=== PATIENT | male | born 1965 | race Caucasian/White ===

== ENCOUNTER 2016-04-16 11:22 | Emergency (ER) | payer OTHER ==
[~2016-04-16] VITALS: Ht 170.2 cm; Wt 78.9 kg
[~2016-04-16 11:22] MED LIST: ALDACTONE100 M1 PO; K-DUR10 MEQ PO; LASIX20 M1 PO; LEVAQUIN750 MG PO; NATURE'S BLEND F1 M1 PO; NATURE'S BLEND100 M2 PO; PENTOXIFYL XR400 MG PO; VITAMIN B1100 MG/ML PO
[2016-04-16 12:00] VITALS: BP 109/74
--- NOTE | 2016-04-16 13:30 | NUR ---
50/M BIB SELF C/O PAIN TO L EAR & WEAKNESS X3 WEEKS. PT STATES "I WENT TO FOLLOW [facility] MY PCP; [place] WBC HIGH & PCP TOLD ME TO COME HERE.".PT DENIES N/V/D; SKIN IS PINK/WARM/DRY; AAOX4 WITH EVEN AND STEADY GAIT; LUNGS CLEAR BL; HR EVEN AND REGULAR; PT DENIES ANY FEVER, CP, SOB, OR COUGH AT THIS TIME; PATIENT STATES PAIN OF 0/10 AT THIS TIME; VSS; PATIENT POSITIONED FOR COMFORT; HOB ELEVATED; BEDRAILS UP X2; BED DOWN. ER MD MADE AWARE OF PT STATUS.
--- NOTE | 2016-04-16 13:32 | NUR ---
DR LÓPEZ EVALUATING PT AT BEDSIDE
--- NOTE | 2016-04-16 14:09 | NUR ---
X RAY AT BEDSIDE
[2016-04-16] MEDS ORDERED: NACL 0.9% 1,000 ML IV ONE (14:55)
[2016-04-16] MEDS ORDERED: cefTRIAXone 1,000 MG VIAL ONE (15:05)
--- NOTE | 2016-04-16 16:26 | NUR ---
Patient appears to be resting comfortably in bed. Vital Signs within normal limits. Respirations even and unlabored.
[2016-04-16 17:13] VITALS: BP 122/89
--- NOTE | 2016-04-16 17:13 | NUR ---
Patient discharged with v/s stable. Written and verbal after care instructions given and explained. Patient alert, oriented and verbalized understanding of instructions. Wheel Chair Assisted with to car. All questions addressed prior to discharge. ID band removed. Patient advised to follow up with PMD. Rx of LEVAQUIN given. Patient educated on indication of medication including possible reaction and side effects. Opportunity to ask questions provided and answered.
== END 2016-04-16 17:13 | disposition home or self-care (01) ==
LOC: MED 11:22
DX: D72.829 Elevated white blood cell count, unspecified (principal); K70.9 Alcoholic liver disease, unspecified
CPT/HCPCS: 36415; 71010; 80053; 83605; 83880; 84484; 85025; 85610; 85730; 87040; 93005; 96365; 99285; J0696; Q0092

== ENCOUNTER 2016-04-17 11:25 | Emergency (ER) | payer OTHER ==
[~2016-04-17] VITALS: Ht 170.2 cm; Wt 78.9 kg
[2016-04-17 11:50] VITALS: BP 122/86
--- NOTE | 2016-04-17 11:50 | NUR ---
PATIENT PRESENTS TO ED TO HAVE A RECHECK OF HIS ABDOMINAL STATION . PT STATES HE WAS INSTRUCTED TO COME BACK TODAY . DENIES N/V/D; SKIN IS PINK/WARM/DRY; AAOX4 WITH EVEN AND STEADY GAIT; LUNGS CLEAR BL; HR EVEN AND REGULAR; PT DENIES ANY FEVER, CP, SOB, OR COUGH AT THIS TIME; PATIENT STATES PAIN OF 0/10 AT THIS TIME; VSS; PATIENT POSITIONED FOR COMFORT; HOB ELEVATED; BEDRAILS UP X2; BED DOWN. ER MD MADE AWARE OF PT STATUS.
--- NOTE | 2016-04-17 12:13 | NUR ---
PT TO BED 4 AT THIS TIME
--- NOTE | 2016-04-17 12:50 | NUR ---
Patient being evaluated by physician at bedside.
[2016-04-17 13:01] VITALS: BP 111/76
--- NOTE | 2016-04-17 13:03 | NUR ---
Patient discharged with v/s stable. Written and verbal after care instructions given and explained. Patient alert, oriented and verbalized understanding of instructions. Ambulatory with steady gait. All questions addressed prior to discharge. ID band removed. Patient advised to follow up with PMD. Rx of THIAMINE, LACTULOSE, VIT B12 given. Patient educated on indication of medication including possible reaction and side effects. Opportunity to ask questions provided and answered.
== END 2016-04-17 13:03 | disposition home or self-care (01) ==
LOC: MED 11:25
DX: K59.00 Constipation, unspecified (principal); F10.239 Alcohol dependence with withdrawal, unspecified

== ENCOUNTER 2017-06-11 13:04 | Inpatient (IN) | payer OTHER ==
[~2017-06-11] VITALS: Ht 170.2 cm; Wt 82.6 kg
[~2017-06-11 13:04] MED LIST changes: -ALDACTONE100 M1 PO; +FOLI1TAB90 PO; +FURO-572 PO; -K-DUR10 MEQ PO; -LASIX20 M1 PO; -LEVAQUIN750 MG PO; +LEVO750T2 PO; -NATURE'S BLEND F1 M1 PO; -NATURE'S BLEND100 M2 PO; -PENTOXIFYL XR400 MG PO; +POTA10TE30 PO; +SPIR100T PO; +THIA100T31 PO; -VITAMIN B1100 MG/ML PO; +[UNRECOGNIZED DRUG - CODE] PO
--- NOTE | 2017-06-11 13:23 | NUR ---
Pt ambulated to bed 2.
[2017-06-11 13:28] VITALS: BP 88/60
[2017-06-11] MEDS ORDERED: ONDANSETRON 4 MG/2 ML VIAL IVP ONE (13:35)
[2017-06-11] MEDS ORDERED: NACL 0.9% 1,000 ML IV ONE (13:35)
[2017-06-11] MEDS ORDERED: PANTOPRAZOLE 40 MG INJ VIAL IVP ONE (13:35)
--- NOTE | 2017-06-11 13:49 | NUR ---
PT COMES TO ED C/O N/V BLOODY EMESIS SINCE 1 HR AGO. PT BROUGHT GROCERY BAG WITH APPROXIMATLEY 100ML OF BRIGHT RED BLODDY EMESIS. PT IS DIAPHORETIC, TALKATIVE, AXOX4. PLACED ON ALL MONITORS, HYPOTENTION OBSERVED, WNL OTHERWISE. 20G IV STARTED TO LFA, IVF NS BOLUS STAERTED PER MD ORDER. LABS DRAWN BY CRUZ SPENCE. EKG IN PROGERESS. WILL CONTINUE TO MONITOR
[2017-06-11 14:07] LABS: BASOPHILS # (AUTO) 0.1 K/uL (0.00-0.22); BASOPHILS % (AUTO) 0.7 % (0.0-2.0); EOSINOPHILS # (AUTO) 0.2 K/uL (0-0.4); EOSINOPHILS % (AUTO) 1.9 % (0.0-4.0); HEMATOCRIT 32.5 % (36-52); HEMOGLOBIN 11.1 g/dL (12.0-18.0); LYMPHOCYTES # (AUTO) 2.5 K/uL (2.0-11.5); LYMPHOCYTES % (AUTO) 26.1 % (20.5-51.1); MEAN CORPUSCULAR HEMOGLOBIN 32 pg (27-31); MEAN CORPUSCULAR HGB CONC 34 g/dL (33-37); MEAN CORPUSCULAR VOLUME 93.9 fL (80-94); MONOCYTES # (AUTO) 0.6 K/uL (0.8-1.0); MONOCYTES % (AUTO) 6.1 % (1.7-9.3); NEUTROPHILS # (AUTO) 6.2 K/uL (1.8-7.7); NEUTROPHILS % (AUTO) 65.2 % (42.2-75.2); PLATELET COUNT (AUTO) 145 K/uL (140-450); RED BLOOD CELL COUNT(AUTO) 3.47 MIL/uL (4.20-6.10); RED CELL DISTRIBUTION WIDTH 14.4 % (11.6-13.7); WHITE BLOOD COUNT (AUTO) 9.5 K/uL (4.8-10.8)
[2017-06-11 14:16] LABS: CREATININE 1.2 mg/dL (0.7-1.3)
[2017-06-11 14:22] LABS: ALBUMIN 2.2 g/dL (3.4-5.0); TOTAL BILIRUBIN 0.7 mg/dL (0.0-1.0)
[2017-06-11 14:38] LABS: PROTHROMBIN TIME 12.8 secs (10.8-13.4)
[2017-06-11 14:53] LABS: APPEARANCE,URINE CLEAR (CLEAR); BILIRUBIN,URINE NEGATIVE (NEGATIVE); BLOOD, URINE NEGATIVE (NEGATIVE); COLOR,URINE YELLOW (YELLOW); LEUKOCYTE ESTERASE ,URINE NEGATIVE (NEGATIVE); NITRITE, URINE NEGATIVE (NEGATIVE); UGLUCOSE 3+ (NEGATIVE)
--- NOTE | 2017-06-11 15:00 | NUR ---
Patient appears to be resting comfortably in bed. Vital Signs within normal limits. Respirations even and unlabored.
--- NOTE | 2017-06-11 15:21 | NUR ---
Pt returned from CT and placed in bed 2.
[2017-06-11] MEDS ORDERED: NACL 0.9% 1,000 ML IV SCH (15:23)
[2017-06-11] MEDS ORDERED: HYDROcodone/APAP 5/325 MG 1 TAB TAB PO PRN (15:25)
[2017-06-11] MEDS ORDERED: ACETAMINOPHEN 325 MG TAB PO PRN (15:25)
[2017-06-11] MEDS ORDERED: ONDANSETRON 4 MG/2 ML VIAL IVP PRN ×2 (15:25→18:40)
[2017-06-11] MEDS: DEXT 5% / NACL 0.9% 1,000 ML IV SCH (15:45)
--- NOTE | 2017-06-11 15:45 | NUR ---
PATIENT ARRIVED TO UNIT VIA GURNEY BEING ACCOMPANIED BY ER NURSE AND TECH. PATIENT AMBULATED FROM GURNEY TO BED. PATIENT ALERT AND ABLE TO MAKE NEEDS KNOWN. A/0X4. RESP EVEN AND UNLABORED. NO ACUTE DISTRESS NOTED. DENIES PAIN. LUNG SOUNDS CLEAR. BOWEL SOUNDS ACTIVE. ABD ROUND AND FIRM. PATIENT WITH HISTORY OF LIVER CIRRHOSIS. IV SITES TO LFA AND RFA BOTH 20G. BOTH PATENT AND INTACT. LAST BLOOD SUGAR 296 . LBM 06/11/17. PATIENT TO BE NPO. SKIN INTACT. PLAN OF CARE DISCUSSED WITH PATIENT. ORIENTED TO ROOM. ADMISSIONS ASSESSMENT INITIATED.CALL LIGHT WITHIN REACH. WILL CONT TO MONITOR.
--- NOTE | 2017-06-11 15:50 | NUR ---
Patient will be admitted to care of DR MARIANO. Admited to TELE . Will go to room 120B. Belongings list completed. Report to CRUZ CURTIS.
[2017-06-11 15:57] VITALS: BP 84/53
[2017-06-11] MEDS: ALBUMIN HUMAN 25% 100 ML IV SCH (16:00)
[2017-06-11] MEDS: BLOOD GLUCOSE MONITORING 1 DEV DEV FS SCH ×2 (16:30→21:23)
--- NOTE | 2017-06-11 16:30 | NUR ---
SPOKE WITH DR MARIANO REGARDING PATIENT BP DROPPING TO 73/47 EVEN AFTER POSITIONED IN [place] WITH NEW ORDER FOR ALBUMIN TO BE ADMINISTERED 3 HRS. AFTER FIRST DOSE COMPLETE..
[2017-06-11] MEDS: INSULIN LISPRO SLIDING SCALE 100 UNITS/ML VIAL SUBQ PRN ×2 (18:07→21:25)
[2017-06-11] MEDS ORDERED: OCTREOTIDE ACETATE 1.25 MG in NACL 0.9% 250 ML IV SCH ×3 (18:40→23:25)
--- NOTE | 2017-06-11 19:00 | NUR ---
DR STORY CALLED IN ORDERS FOR PATIENT . ALL ORDERS NOTED AND CARRIED OUT. PATIENT STABLE IN BED. NO ACUTE DISTRESS. LAST BP 129/86 HR 105.WILL ENDORSE MEDICATION ORDERS TO ONCOMING NURSE.
--- NOTE | 2017-06-11 19:45 | NUR ---
ENDORSED REPORT TO BELLY DANCER NURSE AT BEDSIDE FOR CONTINUITY OF CARE. PATIENT STABLE. NURSE AWARE OF NEW ORDERS.
[2017-06-11] MEDS ORDERED: ALBUMIN HUMAN 25% 100 ML IV ONE ×2 (20:36→21:00)
[2017-06-11 20:55] VITALS: BP 102/45
--- NOTE | 2017-06-11 20:57 | NUR ---
LATEST HEMATOCRIT LISTED IS 32.5. PER ORDER TO TRANSFUSE 1 UNIT PRBC IF HCT IS LESS THAN 22 . RE CONFIRMED WITH CHARGE NURSE ORDER. AWARE. LAB. CALLED BLOOD IS READY IN THE REFRIGERATOR.
[2017-06-11] MEDS ORDERED: PANTOPRAZOLE 40 MG INJ VIAL IVP SCH (21:00)
[2017-06-11] MEDS: LACTULOSE 20 GM/30 ML UDC PO SCH (21:01)
[2017-06-11] MEDS: FUROSEMIDE 20 MG TAB PO SCH (21:01)
[2017-06-11] MEDS: PANTOPRAZOLE 40 MG INJ VIAL IVP SCH (21:01)
--- NOTE | 2017-06-11 22:51 | NUR ---
PAGED Roselia UMAÑA TO RE - CONFIRM SANDOSTATIN IVP ORDERED IN AM SHIFT. PER SPOUT POSITIONER AND CHARGE NURSE TO RE-CONFIRM MD ORDER AGAIN. PAGED 3 X. WAITING FOR HIS CALL BACK.
--- NOTE | 2017-06-11 23:28 | NUR ---
ABLE TO TALK WITH Roselia UMAÑA AND RE-CONFIRMED SANDOSTATIN ORDER. ORDER WAS SANDOSTATIN DRIP OF 50 MCG/H. CHARGE NURSE AWARE. BODY MAKER AWARE.
--- NOTE | 2017-06-11 23:34 | NUR ---
ABLE TO TALK WITH MD STORY AND ORDERED 50 MCG/H. CHARGE NURS AWARE AND GEOTECHNICAL ENGINEER AWARE.
--- NOTE | 2017-06-11 23:44 | NUR ---
WAITING FOR TOOL KEEPER TO DELIVER SANDOSTATIN FOR IVP CONTINUOS DRIP.
[2017-06-12 00:40] VITALS: BP 91/50
[2017-06-12] MEDS ORDERED: OCTREOTIDE ACETATE 1000 MCG/5 ML VIAL ONE (00:45)
[2017-06-12 00:50] LABS: HEMATOCRIT 18.9 % (36-52); HEMOGLOBIN 6.5 g/dL (12.0-18.0)
--- NOTE | 2017-06-12 01:42 | NUR ---
BLOOD TRANSFUSION STARTED ORDERED TO TRANSFUSE IF HCT IS LESS THAN 22. HCT AT 0000 RESULT WAS 18.9. PT. AWAKE AND ALERT. BLOOD TRANSFUSION CONSENT SIGNED AND EGD CONSENT SIGNED. DENIES PAIN AT THIS TIME. CALL LIGHT WITH IN REACH.
--- NOTE | 2017-06-12 02:28 | NUR ---
SANDOSTATIN DRIP STARTED TO RIGHT HAND#22 AT 10 ML/H. PT. HAS NO ADVERSE REACTION TO BLOOD TRANSFUSION ON GOING. TELEMETRY MONITORING.
[2017-06-12 04:39] VITALS: BP 108/70
--- NOTE | 2017-06-12 04:46 | NUR ---
PT. WENT TO RESTROOM TO HAVE BOWEL MOVEMENT. BACK AND BED AND REQUESTED FOR PAIN RELIEVER RT PANCREAS AREA STARTING TO HURT AND IT IS BOTHERING HIM AGAIN. MEDICATED ORDERED. ABLE TO VERBALIZE WELL. NO SOB. AMBYLATING WELL WITH OUT ASSIST TO RESTROOM LOCATED INSIDE ROOM. AFEBRILE. CALL LIGHT WITH IN REACH AT ALL TIMES.
--- NOTE | 2017-06-12 04:50 | NUR ---
PT. STATED THAT HE WENT BM X 3 RT LACTULOSE EFFECT AND STILL HAVE SLIGHT BLOOD NOTED MIXED IN HIS STOOL.
[2017-06-12] MEDS: DEXT 5% / NACL 0.9% 1,000 ML IV SCH ×2 (05:05→18:25)
[2017-06-12] MEDS: BLOOD GLUCOSE MONITORING 1 DEV DEV FS SCH ×4 (05:35→21:13)
[2017-06-12] MEDS: INSULIN LISPRO SLIDING SCALE 100 UNITS/ML VIAL SUBQ PRN ×3 (05:36→17:19)
--- NOTE | 2017-06-12 06:39 | NUR ---
PT. MEDICATED WITH NORCO X 1 THIS A.M. RT C/O PANCREATIC PAIN ACTING UP. ABLE TO VERBALIZE WELL. A/O X 4. NO ADVERSE REACTIONS TO BLOOD TRANSFUSION OF PRBC ORDERED #1 UNIT.
--- NOTE | 2017-06-12 07:30 | NUR ---
PATIENT SITTING IN BED WATCHING TV. AMBULATED TO BATHROOM AND BACK TO BED WITH STEADY GAIT. NO DISTRESS NOTED. DENIES ANY PAIN AT THIS TIME. RESPIRATIONS EVEN, UNLABORED, ON ROOM AIR. AAOX4, CALM, COOPERATIVE, SKIN COLOR APPROPRIATE TO ETHNICITY, WARM TO TOUCH. SKIN IS INTACT. ABDOMEN SOFT. LUNGS CTA ON ALL LOBES. IV SITES INTACT AND PATENT, LEFT FA IV SITE INFUSING SANDOSTATIN VIA IV PER ORDERS. RIGHT FA IV SITE INFUSING IVF PER ORDERS. REVIEWED PLAN OF CARE WITH PATIENT. PATIENT VERBALIZED UNDERSTANDING. SAFETY MEASURES IN PLACE, CALL LIGHT WITHIN REACH, FALL PREVENTIONS IN PLACE. WILL CONTINUE TO MONITOR.
[2017-06-12 07:50] LABS: BASOPHILS % (AUTO) 0.5 % (0.0-2.0); EOSINOPHILS # (AUTO) 0.1 K/uL (0-0.4); EOSINOPHILS % (AUTO) 0.8 % (0.0-4.0); HEMATOCRIT 22.9 % (36-52); HEMOGLOBIN 7.8 g/dL (12.0-18.0); LYMPHOCYTES # (AUTO) 1.9 K/uL (2.0-11.5); LYMPHOCYTES % (AUTO) 20.5 % (20.5-51.1); MEAN CORPUSCULAR HEMOGLOBIN 32 pg (27-31); MEAN CORPUSCULAR HGB CONC 34 g/dL (33-37); MEAN CORPUSCULAR VOLUME 94.3 fL (80-94); MONOCYTES # (AUTO) 0.8 K/uL (0.8-1.0); MONOCYTES % (AUTO) 8.3 % (1.7-9.3); NEUTROPHILS # (AUTO) 6.6 K/uL (1.8-7.7); NEUTROPHILS % (AUTO) 69.9 % (42.2-75.2); PLATELET COUNT (AUTO) 86 K/uL (140-450); RED BLOOD CELL COUNT(AUTO) 2.42 MIL/uL (4.20-6.10); RED CELL DISTRIBUTION WIDTH 14.2 % (11.6-13.7); WHITE BLOOD COUNT (AUTO) 9.5 K/uL (4.8-10.8)
[2017-06-12 08:00] VITALS: BP 106/62
--- NOTE | 2017-06-12 08:44 | NUR ---
PATIENT HAS BEEN SCREENED AND CATEGORIZED MODERATE NUTRITION RISK. PATIENT WILL BE SEEN WITHIN 3-5 DAYS OF ADMISSION. 06/14/17 - 06/16/[address]
[2017-06-12 08:51] LABS: ALBUMIN 2.9 g/dL (3.4-5.0); ANION GAP 11.4 (8-16); CARBON DIOXIDE 23.1 mmol/L (21-32); POTASSIUM 4.5 mmol/L (3.5-5.1); TOTAL BILIRUBIN 0.8 mg/dL (0.0-1.0)
[2017-06-12] MEDS ORDERED: METOCLOPRAMIDE 10 MG TAB PO SCH (09:00)
[2017-06-12] MEDS: LACTULOSE 20 GM/30 ML UDC PO SCH ×2 (09:46→21:12)
[2017-06-12] MEDS: PANTOPRAZOLE 40 MG INJ VIAL IVP SCH ×2 (09:46→21:13)
[2017-06-12] MEDS: FUROSEMIDE 20 MG TAB PO SCH (09:47)
--- NOTE | 2017-06-12 10:03 | NUR ---
PATIENT LYING IN BED COMFORTABLY. NO DISTRESS NOTED. DENIES ANY PAIN. REPORTS HAVING A BM ABOUT 30 MINUTES AGO WITH BLOOD IN STOOL. SCHEDULED MEDICATIONS DUE GIVEN. SAFETY MEASURES IN PLACE, CALL LIGHT WITHIN REACH. WILL CONTINUE TO MONITOR.
[2017-06-12] MEDS ORDERED: MIDAZOLAM 2 MG/2 ML VIAL ONE (10:07)
[2017-06-12] MEDS ORDERED: fentaNYL 0.05 MG/ML VIAL ONE (10:07)
--- NOTE | 2017-06-12 10:20 | NUR ---
OR NURSES ON UNIT TO TAKE PATIENT TO OR FOR EGD. WILL CONTINUE TO MONITOR WHEN PATIENT RETURNS ON UNIT.
--- NOTE | 2017-06-12 11:00 | NUR ---
PATIENT BACK ON MST UNIT FROM EGD. PATIENT IS DROWSY HE CONTINUES TO RECOVER FROM EGD PROCEDURE. NO DISTRESS NOTED. DENIES ANY PAIN AT THIS TIME. IVF AND SANDOSTATIN DRIP CONTINUED PER ORDERS. SANDOSTATIN DRIP TO BE DISCONTINUED AFTER CURRENT BAG ENDS.
[2017-06-12] MEDS ORDERED: MIDAZOLAM 2 MG/2 ML VIAL IVP ONE (11:20)
[2017-06-12] MEDS ORDERED: fentaNYL 0.05 MG/ML VIAL IVP ONE (11:20)
[2017-06-12 12:00] VITALS: BP 104/61
[2017-06-12] MEDS: METOCLOPRAMIDE 10 MG TAB PO SCH ×2 (12:41→16:55)
[2017-06-12] MEDS: PROPRANOLOL 20 MG TAB PO SCH ×2 (12:41→16:55)
--- NOTE | 2017-06-12 12:43 | NUR ---
PATIENT LYING DOWN IN BED SLEEPING, AROUSABLE BY VOICE. NO DISTRESS NOTED. DENIES ANY PAIN. DENIES ANY NAUSEA/VOMITING. SCHEDULED MEDICATIONS DUE GIVEN. SAFETY MEASURES IN PLACE, CALL LIGHT WITHIN REACH. WILL CONTINUE TO MONITOR.
[2017-06-12] MEDS: FERRIC GLUCONATE 125 MG in NACL 0.9% 100 ML IV SCH (13:29)
--- NOTE | 2017-06-12 14:54 | NUR ---
CM NOTE INITIAL REVIEW FAXED TO [facility] (FAX# [phone], ATTN: JENNIFER #[phone]) & [facility] (FAX# [phone], C: [phone])
[2017-06-12 14:57] LABS: HEMATOCRIT 20.1 % (36-52); HEMOGLOBIN 6.8 g/dL (12.0-18.0)
--- NOTE | 2017-06-12 15:57 | NUR ---
PATIENT SITTING IN BED TALKING WITH FRIEND AT BEDSIDE. NO DISTRESS NOTED. DENIES ANY PAIN. CONDITION UNCHANGED. WILL CONTINUE TO MONITOR.
[2017-06-12 16:00] VITALS: BP 101/66
[2017-06-12] MEDS: ALBUMIN HUMAN 25% 100 ML IV SCH (16:54)
--- NOTE | 2017-06-12 17:03 | NUR ---
PATIENT SITTING IN BED COMFORTABLY. NO DISTRESS NOTED. DENIES ANY PAIN. SCHEDULED MEDICATIONS DUE GIVEN. CONDITION UNCHANGED. WILL CONTINUE TO MONITOR.
[2017-06-12 18:06] LABS: HEMATOCRIT 21.2 % (36-52); HEMOGLOBIN 7.3 g/dL (12.0-18.0)
[2017-06-12] MEDS ORDERED: OCTREOTIDE ACETATE 0.05 MG in NACL 0.9% 250 ML IV SCH (18:40)
--- NOTE | 2017-06-12 18:50 | NUR ---
PATIENT LYING IN BED SLEEPING, AROUSABLE BY VOICE. NO DISTRESS NOTED. DENIES ANY PAIN AT THIS TIME. SAFETY MEASURES IN PLACE, CALL LIGHT WITHIN REACH. WILL CONTINUE TO MONITOR.
--- NOTE | 2017-06-12 19:25 | NUR ---
GAVE REPORT TO FRIT MAKER NURSE FOR CONTINUITY OF CARE. PATIENT IN STABLE CONDITION.
--- NOTE | 2017-06-12 19:30 | NUR ---
SEEN PT. AWAKE AND ALERT. AMBULATED TO RESTROOM. STATED NO STOOL. WENT TO PASS GAS ONLY. ABLE TO VERBALIZE WELL. CALL LIGHT WITH IN REACH . NO SOB. DENIES ANY PAIN AT THIS TIME. CARE PLANS FOR THE NIGHT DISCUSSED WITH PT. ALL IVF SITES INTACT AND NO INFILTRATION NOTED.
[2017-06-12 20:00] VITALS: BP 96/66
--- NOTE | 2017-06-12 21:59 | NUR ---
BLOOD TRANSFUSION #1 PRBC STARTED. BLOOD PRESSURE TAKEN A/O X 4. CLEAR SPEECH. CALL LIGHT WITH IN REACH. ENCOURAGED TO CALL FOR ANY THING THAT HE FEELS ABNORMAL IT COULD BE SIGN AF ADVERSE REACTION TO BLOOD TRANSFUSION. :"OK".
--- NOTE | 2017-06-12 22:11 | NUR ---
BLOOD TRANSFUSION ON GOING. NO ADVERSE REACTIONS NOTED. ABLE TO VERBALIZE NEEDS WELL. DENIES PAIN.
--- NOTE | 2017-06-12 23:13 | NUR ---
SLEEPING AT THIS TIME. NO RESTLESSNESS. TELEMETRY MONITORING.
[2017-06-13] VITALS: BP 131/66
[2017-06-13 04:00] VITALS: BP 129/72
--- NOTE | 2017-06-13 07:45 | NUR ---
RECEIVED REPORT FROM PM NURSE, PT AWAKE, ALERT, NO S/S OF RESPIRATORY DISTRESS NOTED. PT HAS IV TO LEFT FOREARM AND RIGHT FOREARM , LEFT FOREARM RUNNING D5 NS AT 75 MLS/HR, SITE INTACT AND PATENT. PT ABLE TO MOVE ALL HIS EXTREMITIES, POC EXPLAINED TO PT, PT VERBALIZED UNDERSTANDING, CALL LIGHT IN REACH, WILL CONTINUE TO MONITOR.
--- NOTE | 2017-06-13 07:46 | NUR ---
ENDORSED TO THE NEXT RN FOR CONTINUITY OF CARE. AWAKE AND ALERT. VERBALIZES WELL. CALL LIGHT AT BEDSIDE. NO ADVERSE REACTIONS TO 2 UNITS OF BLOOD TRANSFUSION GIVE. INDEPENDENT. TELEMETRY MONITORING.
[2017-06-13 08:00] VITALS: BP 107/68
[2017-06-13] MEDS: PANTOPRAZOLE 40 MG INJ VIAL IVP SCH ×2 (08:11→21:02)
[2017-06-13] MEDS: FUROSEMIDE 20 MG TAB PO SCH (08:12)
[2017-06-13] MEDS: PROPRANOLOL 20 MG TAB PO SCH ×3 (08:13→16:10)
[2017-06-13] MEDS: METOCLOPRAMIDE 10 MG TAB PO SCH ×3 (08:13→16:09)
[2017-06-13] MEDS: LACTULOSE 20 GM/30 ML UDC PO SCH ×2 (08:16→21:02)
[2017-06-13] MEDS: BLOOD GLUCOSE MONITORING 1 DEV DEV FS SCH ×4 (08:28→21:06)
[2017-06-13 09:16] LABS: BASOPHILS % (AUTO) 0.4 % (0.0-2.0); EOSINOPHILS # (AUTO) 0.1 K/uL (0-0.4); EOSINOPHILS % (AUTO) 1.9 % (0.0-4.0); HEMOGLOBIN 9.9 g/dL (12.0-18.0); LYMPHOCYTES # (AUTO) 1.5 K/uL (2.0-11.5); LYMPHOCYTES % (AUTO) 23.4 % (20.5-51.1); MEAN CORPUSCULAR HEMOGLOBIN 32 pg (27-31); MEAN CORPUSCULAR HGB CONC 34 g/dL (33-37); MEAN CORPUSCULAR VOLUME 93.6 fL (80-94); MONOCYTES # (AUTO) 0.6 K/uL (0.8-1.0); NEUTROPHILS # (AUTO) 4.2 K/uL (1.8-7.7); NEUTROPHILS % (AUTO) 64.3 % (42.2-75.2); PLATELET COUNT (AUTO) 82 K/uL (140-450); RED CELL DISTRIBUTION WIDTH 15.2 % (11.6-13.7); WHITE BLOOD COUNT (AUTO) 6.5 K/uL (4.8-10.8)
[2017-06-13 09:37] LABS: ANION GAP 13.8 (8-16); CARBON DIOXIDE 24.2 mmol/L (21-32); TOTAL BILIRUBIN 1.6 mg/dL (0.0-1.0)
[2017-06-13] MEDS: DEXT 5% / NACL 0.9% 1,000 ML IV SCH (10:50)
[2017-06-13] MEDS: FERRIC GLUCONATE 125 MG in NACL 0.9% 100 ML IV SCH (11:01)
[2017-06-13 12:00] VITALS: BP 110/72
--- NOTE | 2017-06-13 12:00 | NUR ---
PT STAYING IN BED, DENIES PAIN AT THIS TIME.
--- NOTE | 2017-06-13 14:40 | NUR ---
FAXED CONCURRENT REVIEW TO [facility] [phone] KEVIN [phone] FAXED CONCURRENT REVIEW TO [employer] [phone]
[2017-06-13 16:00] VITALS: BP 125/75
[2017-06-13] MEDS: ALBUMIN HUMAN 25% 100 ML IV SCH (16:09)
--- NOTE | 2017-06-13 16:30 | NUR ---
FINGER BS IN NORMAL RANGE, NO SLIDING SCALE COVERAGE NEEDED.
[2017-06-13 17:05] LABS: HEMATOCRIT 28.6 % (36-52); HEMOGLOBIN 9.9 g/dL (12.0-18.0)
--- NOTE | 2017-06-13 18:00 | NUR ---
PT STAYING IN BED, NO S/S OF RESPIRATORY DISTRESS NOTED, VITALS STABLE. CALL LIGHT IN REACH.
--- NOTE | 2017-06-13 19:30 | NUR ---
RECEIVED REPORT FROM DAY SHIFT RN, PT IS A/OX4, ON ROOM AIR. SKIN IS INTACT. UPDATED BOARD. VITAL SIGNS WITHIN NORMAL LIMITS. PT IN STABLE CONDITION, NO SIGNS OF DISTRESS NOTED. BED IN LOWEST POSITION, CALL LIGHT WITHIN REACH. WILL CONTINUE TO MONITOR.
[2017-06-13 20:00] VITALS: BP 111/66
--- NOTE | 2017-06-13 21:06 | NUR ---
ADMINISTERED SCHEDULED MEDICATIONS, PT TOLERATED WELL. PT REFUSED INSULIN COVER BECAUSE HE STATES HE ATE ICE CREAM AND THATS WHYU HIS BLOOD SUGAR WAS 207.
--- NOTE | 2017-06-13 21:07 | NUR ---
ADMINISTERED SCHEDULED MEDICATIONS, PT TOLERATED WELL. PT BLOOD SUGAR IS 207 BUT PT REFUSES INSULIN BECAUSE HE SAYS "IT'S NOT THAT BAD, I JUST ATE ICE CREAM. I JUST WANT TO TRY TO SLEEP." VERBALIZED RISKS, BENEFITS, AND SIDE EFFECTS OF HUMALOG, PT VERBALIZED UNDERSTANDING.
[2017-06-14] VITALS: BP 92/58
--- NOTE | 2017-06-14 | NUR ---
VITAL SIGNS WITHIN NORMAL LIMITS. PT IN STABLE CONDITION, NO SIGNS OF DISTRESS NOTED. BED IN LOWEST POSITION, CALL LIGHT WITHIN REACH. WILL CONTINUE TO MONITOR.
[2017-06-14 04:00] VITALS: BP 105/72
--- NOTE | 2017-06-14 04:00 | NUR ---
VITAL SIGNS WITHIN NORMAL LIMITS. PT IN STABLE CONDITION, NO SIGNS OF DISTRESS NOTED. BED IN LOWEST POSITION, CALL LIGHT WITHIN REACH. WILL CONTINUE TO MONITOR.
[2017-06-14] MEDS: BLOOD GLUCOSE MONITORING 1 DEV DEV FS SCH ×3 (06:47→16:34)
[2017-06-14] MEDS: METOCLOPRAMIDE 10 MG TAB PO SCH ×3 (07:01→16:15)
--- NOTE | 2017-06-14 07:32 | NUR ---
ENDORSED PT TO DAY SHIFT RN FOR CONTINUITY OF CARE. PT IN STABLE CONDITION.
--- NOTE | 2017-06-14 07:40 | NUR ---
RECEIVED REPORT FOR THE PT FROM SOCIETY EDITOR NURSE. PT IS AWAKE LYING ON THE BED WITH IV LINES ON THE LEFT FA G.22 AND RIGHT HAND G. 20. NO SIGNS OF DISTRESS NOTED AT THIS TIME.. CALL LIGHT WITHIN REACH. WILL CONTINUE TO MONITOR.
[2017-06-14 08:00] VITALS: BP 114/69
--- NOTE | 2017-06-14 08:00 | NUR ---
PT IS AWAKE LYING ON THE BED. VITAL SIGNS TAKEN. NO SIGNS OF DISTRESS NOTED. CALL LIGHT WITHIN REACH. WILL CONTINUE TO MONITOR.
[2017-06-14 08:47] LABS: BASOPHILS % (AUTO) 0.7 % (0.0-2.0); EOSINOPHILS # (AUTO) 0.1 K/uL (0-0.4); EOSINOPHILS % (AUTO) 1.5 % (0.0-4.0); HEMATOCRIT 28.4 % (36-52); HEMOGLOBIN 9.7 g/dL (12.0-18.0); LYMPHOCYTES # (AUTO) 1.2 K/uL (2.0-11.5); LYMPHOCYTES % (AUTO) 19.4 % (20.5-51.1); MEAN CORPUSCULAR HEMOGLOBIN 32 pg (27-31); MEAN CORPUSCULAR HGB CONC 34 g/dL (33-37); MEAN CORPUSCULAR VOLUME 94.3 fL (80-94); MONOCYTES # (AUTO) 0.7 K/uL (0.8-1.0); MONOCYTES % (AUTO) 11.1 % (1.7-9.3); NEUTROPHILS # (AUTO) 4.1 K/uL (1.8-7.7); NEUTROPHILS % (AUTO) 67.3 % (42.2-75.2); PLATELET COUNT (AUTO) 85 K/uL (140-450); RED BLOOD CELL COUNT(AUTO) 3.01 MIL/uL (4.20-6.10); RED CELL DISTRIBUTION WIDTH 15.5 % (11.6-13.7); WHITE BLOOD COUNT (AUTO) 6.1 K/uL (4.8-10.8)
--- NOTE | 2017-06-14 09:00 | NUR ---
PT IS AWAKE, SEATED ON THE BED, MEDICATIONS GIVEN. PT TOLERATED IT. NO UNTOWARD SIGNS NOTED AT THIS TIME. CALL LIGHT WITHIN REACH. WILL CONTINUE TO MONITOR.
[2017-06-14] MEDS: PANTOPRAZOLE 40 MG INJ VIAL IVP SCH (09:12)
[2017-06-14] MEDS: LACTULOSE 20 GM/30 ML UDC PO SCH (09:12)
[2017-06-14] MEDS: PROPRANOLOL 20 MG TAB PO SCH (09:13)
[2017-06-14] MEDS: FUROSEMIDE 20 MG TAB PO SCH (09:13)
[2017-06-14 09:15] LABS: ALBUMIN 3.3 g/dL (3.4-5.0); ANION GAP 12.5 (8-16); CARBON DIOXIDE 23.6 mmol/L (21-32); POTASSIUM 4.1 mmol/L (3.5-5.1); TOTAL BILIRUBIN 2.3 mg/dL (0.0-1.0)
--- NOTE | 2017-06-14 11:30 | NUR ---
PT IS AWAKE LYING ON THE BED, BLOOD GLUCOSE DONE RESULT REVEALED 181. MEDICATIONS GIVEN. NO SIGNS OF DISTRESS NOTED. CALL LIGHT WITHIN REACH. WILL CONTINUE TO MONITOR.
[2017-06-14 12:00] VITALS: BP 127/78
[2017-06-14] MEDS: FERRIC GLUCONATE 125 MG in NACL 0.9% 100 ML IV SCH (12:41)
[2017-06-14] MEDS: INSULIN LISPRO SLIDING SCALE 100 UNITS/ML VIAL SUBQ PRN ×2 (12:44→16:33)
--- NOTE | 2017-06-14 13:40 | NUR ---
PT IS AWAKE LYING ON THE BED. LEFT IV LINE WAS OUT OF THE VEIN SO IV WAS REMOVED AND IV FLUID WAS TRANSFERRED TO THE RIGHT HAND NO UNTOWARD SIGNS NOTED. CALL LIGHT WITHIN REACH. WILL CONTINUE TO MONITOR.
[2017-06-14 16:00] VITALS: BP 137/80
--- NOTE | 2017-06-14 16:00 | NUR ---
PT IS AWAKE, VITAL SIGNS CHECKED, TEMPERATURE IS ELEVATED, 102.3. INFORMED THE DOCTOR. WILL MEDICATE.
--- NOTE | 2017-06-14 16:06 | NUR ---
DISCHARGE ORDER FOR THE PT WAS PLACED BY DR. MARIANO. WILL FACILITATE DISCHARGE PROCESS ONCE TEMPERATURE SUBSIDES.
--- NOTE | 2017-06-14 16:14 | NUR ---
PT IS AWAKE MEDICATED WITH TYLENOL FOR FEVER. CALL LIGHT WITHIN REACH. WILL CONTINUE TO MONITOR.
[2017-06-14] MEDS ORDERED: FERROUS SULFATE 325 MG TABEC PO SCH (17:00)
--- NOTE | 2017-06-14 17:30 | NUR ---
PT'S TEMPERATURE WAS CHECKED, RESULT REVEALED 100.3. NO OTHER UNTOWARD SIGNS NOTED. CALL LIGHT WITHIN REACH. WILL CONTINUE TO MONITOR.
--- NOTE | 2017-06-14 17:57 | NUR ---
TEMPERATURE OF THE PT WAS CHECKED AGAIN, RESULT REVEALED, 98.6. NO SIGNS OF DISTRESS NOTED AT THIS TIME. CALL LIGHT WITHIN REACH. WILL PROCESS THE DISCHARGE
[2017-06-14] MEDS ORDERED: PROPRANOLOL 20 MG TAB PO SCH (21:00)
[2017-06-15] MEDS ORDERED: LACTULOSE 20 GM/30 ML UDC PO SCH (09:00)
--- NOTE | 2017-06-18 16:00 | NUR ---
ORDER WRITTEN ON 06/14 FOR OUT PATIENT FOLLOW UP WITH STANISLAW HERNANDES FOR ESOPHAGEAL MASS, R/O CANCER. CALLED [employer] AT [phone], OUT PATIENT X [phone]. I SPOKE WITH DANA FROM CALL CENTER. SHE SAID TO FAX THE ORDER AND H&P ETC TO HER AT [phone], WHICH I DID.
== END 2017-06-14 18:55 | disposition home or self-care (01) | DRG 241 ==
LOC: MED 13:04 → MTU 15:23
PROVIDERS: ADMIT Hospitalist; ATTEND Hospitalist
PROC: 30233N1 Transfusion of Nonautologous Red Blood Cells into Peripheral Vein, Percutaneous Approach (ICD-10-PCS; 2017-06-12)
PROC: 0DJ08ZZ Inspection of Upper Intestinal Tract, Via Natural or Artificial Opening Endoscopic (ICD-10-PCS; principal; 2017-06-12 10:15)
DX: K27.4 Chronic or unspecified peptic ulcer, site unspecified, with hemorrhage (principal); K76.6 Portal hypertension; K85.90 Acute pancreatitis without necrosis or infection, unspecified; K70.30 Alcoholic cirrhosis of liver without ascites; F20.9 Schizophrenia, unspecified; I85.10 Secondary esophageal varices without bleeding; E11.9 Type 2 diabetes mellitus without complications; K31.7 Polyp of stomach and duodenum; F41.9 Anxiety disorder, unspecified; K31.89 Other diseases of stomach and duodenum; F10.10 Alcohol abuse, uncomplicated; K21.9 Gastro-esophageal reflux disease without esophagitis; F32.9 Major depressive disorder, single episode, unspecified; Z87.891 Personal history of nicotine dependence; Z59.0 Homelessness
CPT/HCPCS: 36415; 71045; 80053; 81003; 82150; 82948; 83036; 83690; 85018; 85025; 85610; 85730; 86886; 86900; 86901; 86920; 87081; 93005; 96361; 96374; 96375; 99285; C9113; J1815; J2250; J2354; J2405; J2916; J3010; J7030; J7042; J8597; P9016; P9046; Q0092

== ENCOUNTER 2018-12-18 11:13 | Emergency (ER) | payer OTHER ==
[~2018-12-18] VITALS: Ht 167.6 cm; Wt 81.6 kg
[~2018-12-18 11:13] MED LIST changes: +PENT400T29 PO; +THIA-34 PO; -THIA100T31 PO; -[UNRECOGNIZED DRUG - CODE] PO
[2018-12-18 11:19] VITALS: BP 97/60
[2018-12-18] MEDS ORDERED: ATOR10TA PO (11:19)
[2018-12-18] MEDS ORDERED: MIRT30TA PO (11:19)
[2018-12-18] MEDS ORDERED: METF1000 PO (11:19)
[2018-12-18] MEDS ORDERED: PROP20TA29 PO (11:19)
[2018-12-18] MEDS ORDERED: NACL 0.9% 1,000 ML IV ONE ×2 (11:50→14:10)
[2018-12-18] MEDS ORDERED: PANTOPRAZOLE 40 MG INJ VIAL IVP ONE (11:50)
[2018-12-18 12:17] LABS: BASOPHILS # (AUTO) 0.1 K/uL (0.00-0.22); BASOPHILS % (AUTO) 0.4 % (0.0-2.0); EOSINOPHILS % (AUTO) 0.2 % (0.0-4.0); HEMATOCRIT 27.8 % (36-52); HEMOGLOBIN 9.5 g/dL (12.0-18.0); LYMPHOCYTES # (AUTO) 2.1 K/uL (2.0-11.5); LYMPHOCYTES % (AUTO) 15.9 % (20.5-51.1); MEAN CORPUSCULAR HEMOGLOBIN 32 pg (27-31); MEAN CORPUSCULAR HGB CONC 34 g/dL (33-37); MEAN CORPUSCULAR VOLUME 92.9 fL (80-94); MONOCYTES # (AUTO) 0.4 K/uL (0.8-1.0); MONOCYTES % (AUTO) 3.3 % (1.7-9.3); NEUTROPHILS # (AUTO) 10.4 K/uL (1.8-7.7); NEUTROPHILS % (AUTO) 80.2 % (42.2-75.2); PLATELET COUNT (AUTO) 197 K/uL (140-450); RED CELL DISTRIBUTION WIDTH 13.6 % (11.6-13.7)
[2018-12-18 12:25] LABS: PROTHROMBIN TIME 11.4 secs (10.8-13.4)
[2018-12-18 12:30] LABS: ALBUMIN 2.9 g/dL (3.4-5.0); ANION GAP 13.5 (8-16); POTASSIUM 5.5 mmol/L (3.5-5.1); TOTAL BILIRUBIN 0.6 mg/dL (0.0-1.0)
[2018-12-18] MEDS ORDERED: INSULIN REGULAR, HUMAN 100 UNIT/ML VIAL IVP ONE (14:10)
[2018-12-18 15:50] VITALS: BP 120/72
== END 2018-12-18 15:50 | disposition home or self-care (01) ==
LOC: MED 11:13
DX: K29.01 Acute gastritis with bleeding (principal); R73.9 Hyperglycemia, unspecified; K21.9 Gastro-esophageal reflux disease without esophagitis; F41.9 Anxiety disorder, unspecified; F32.9 Major depressive disorder, single episode, unspecified; Z87.19 Personal history of other diseases of the digestive system; Z79.899 Other long term (current) drug therapy
CPT/HCPCS: 36415; 80053; 81002; 83690; 85025; 85610; 86886; 86900; 86901; 96372; 96374; 99283; C9113; J1815; J7030

== ENCOUNTER 2022-06-28 17:35 | Inpatient (IN) | payer OTHER ==
[~2022-06-28] VITALS: Ht 170.2 cm; Wt 81.6 kg
[~2022-06-28 17:35] MED LIST changes: +ATOR10TA PO; +CEPH500T PO; -FOLI1TAB90 PO; -FURO-572 PO; +LACT10SO11 PO; -LEVO750T2 PO; +METF-1274 PO; +MIRT-92 PO; +PANT40EC PO; -PENT400T29 PO; -POTA10TE30 PO; +PROP20TA29 PO; -SPIR100T PO; -THIA-34 PO
[2022-06-28 17:40] VITALS: BP 139/93
--- NOTE | 2022-06-28 17:52 | NUR ---
56 yo /m presents to ed w c/o upper abdominal pain 12/10 non-rad x2 hours, +n/v/d (no blood), reports possibly eating bad pork or cake, + sob. pt denies any fevers, chills, or chest pain. pt took pantropazole approx 3 hours ago and an antdiarrheal pill x1 hour ago. pmh: cirrhosis, dm, htn, high chol, anxiety, depression allergies: denies
[2022-06-28 18:18] LABS: BASOPHILS % (AUTO) 0.1 % (0.0-2.0); EOSINOPHILS % (AUTO) 0.3 % (0.0-4.0); HEMATOCRIT 45.2 % (36-52); HEMOGLOBIN 15.3 g/dL (12.0-18.0); LYMPHOCYTES # (AUTO) 1.1 K/uL (2.0-11.5); LYMPHOCYTES % (AUTO) 6.6 % (20.5-51.1); MEAN CORPUSCULAR HEMOGLOBIN 29 pg (27-31); MEAN CORPUSCULAR HGB CONC 34 g/dL (33-37); MEAN CORPUSCULAR VOLUME 86.8 fL (80-94); MONOCYTES # (AUTO) 0.4 K/uL (0.8-1.0); MONOCYTES % (AUTO) 2.7 % (1.7-9.3); NEUTROPHILS # (AUTO) 14.6 K/uL (1.8-7.7); NEUTROPHILS % (AUTO) 90.3 % (42.2-75.2); PLATELET COUNT (AUTO) 215 K/uL (140-450); RED BLOOD CELL COUNT(AUTO) 5.21 MIL/uL (4.20-6.10); RED CELL DISTRIBUTION WIDTH 15.3 % (11.6-13.7); WHITE BLOOD COUNT (AUTO) 16.1 K/uL (4.8-10.8)
[2022-06-28 18:36] LABS: ANION GAP 16.9 (8-16); CARBON DIOXIDE 23.6 mmol/L (21-32); CREATININE 1.1 mg/dL (0.6-1.3); POTASSIUM 3.5 mmol/L (3.5-5.1); TOTAL BILIRUBIN 0.8 mg/dL (0.0-1.0)
--- NOTE | 2022-06-28 19:16 | NUR ---
PT REPORT TO CRUZ JACK
[2022-06-28] MEDS ORDERED: PANTOPRAZOLE 40 MG INJ VIAL IVP ONE (19:30)
[2022-06-28] MEDS ORDERED: MORPHINE SULFATE 4 MG/ML SYR IVP ONE (19:30)
--- NOTE | 2022-06-28 19:50 | NUR ---
pt is complaining about the pain in the stomach 08/10. Md notified.
[2022-06-28] MEDS ORDERED: LEVOFLOXACIN 500 MG/D5W PREMIX 100 ML IV ONE (21:20)
[2022-06-28] MEDS ORDERED: metroNIDAZOLE 500 MG/NS PREMIX 100 ML IV ONE (21:20)
[2022-06-28] MEDS ORDERED: ONDANSETRON 4 MG/2 ML VIAL IVP PRN (21:50)
[2022-06-28] MEDS ORDERED: HYDROcodone/APAP 5/325 MG 1 TAB TAB PO PRN (21:50)
[2022-06-28] MEDS ORDERED: POTASSIUM CHLORIDE 10 MEQ TABER PO PRN (21:50)
[2022-06-28] MEDS: NACL 0.9% 1,000 ML IV SCH (21:50)
[2022-06-28] MEDS ORDERED: MORPHINE SULFATE 4 MG/ML SYR IVP PRN (21:50)
[2022-06-28] MEDS ORDERED: MAGNESIUM OXIDE 400 MG TAB PO PRN (21:50)
[2022-06-28] MEDS ORDERED: MAG SULF 2000 MG/WATER PREMIX 50 ML IV PRN (21:50)
[2022-06-28] MEDS ORDERED: KCL 20 MEQ IN 100 mL PREMIX 200 ML IV PRN (21:50)
[2022-06-28] MEDS ORDERED: SERT100T PO (23:26)
[2022-06-28 23:39] LABS: APPEARANCE,URINE CLEAR (CLEAR); BILIRUBIN,URINE NEGATIVE (NEGATIVE); BLOOD, URINE NEGATIVE (NEGATIVE); COLOR,URINE YELLOW (YELLOW); LEUKOCYTE ESTERASE ,URINE NEGATIVE (NEGATIVE); NITRITE, URINE NEGATIVE (NEGATIVE); UGLUCOSE 2+ (NEGATIVE)
--- NOTE | 2022-06-28 23:50 | NUR ---
PT WAS ADMITTED TO [facility] FROM ER THRU WHEELCHAIR WITH DIAGNOSIS OF COLITIS. PT IS AOX4, AMBULATORY, ABLE TO VERBALIZE NEEDS AND ABLE TO FOLLOW COMMANDS. PT IS ON ROOM AIR AND NPO DIET. PT SKIN IS INTACT. NO COMPLAIN OF PAIN AT THIS TIME. NO S/S OF RESPIRATORY DISTRESS NOTED. PT WAS ORIENTED TO ROOM/HOSPITAL, BED BUTTONS AND CALL LIGHT. ALL SAFETY MEASURES IMPLEMENTED. BED IN LOW POSITION, BED WHEELS ON LOCK AND CALL LIGHT WITHIN REACH.
[2022-06-28 23:55] LABS: HYALINE CASTS, URINE 0-2 /LPF (None Seen); RBC,URINE NONE SEEN /HPF (0-5)
--- NOTE | 2022-06-28 23:55 | NUR ---
Patient will be admitted to care [facility]. [facility] Will go to room 104b. Belongings list completed. Report to cherelle.
--- NOTE | 2022-06-29 00:54 | NUR ---
NOTIFIED DR. LAIRD REGARDING DUE TO PT IS REQUESTING FOR ACCUCHECK WILL WAIT FOR MD ORDER.
--- NOTE | 2022-06-29 01:19 | NUR ---
DR. LAIRD ORDERED [facility]. ORDER WAS MADE AND CARRIED OUT.
[2022-06-29] MEDS ORDERED: DEXTROSE 50% 50 ML SYR IVP PRN (01:25)
[2022-06-29] MEDS ORDERED: INSULIN LISPRO SLIDING SCALE 100 UNITS/ML VIAL SUBQ PRN (01:25)
[2022-06-29 04:00] VITALS: BP 108/63
[2022-06-29] MEDS: metroNIDAZOLE 500 MG/NS PREMIX 100 ML IV SCH ×2 (04:32→13:24)
[2022-06-29] MEDS: BLOOD GLUCOSE MONITORING 1 DEV DEV FS SCH ×2 (06:35→12:06)
--- NOTE | 2022-06-29 07:25 | NUR ---
PT IS STABLE. ENDORSED PT TO MORNING SHIFT NURSE FOR CONTINUITY OF CARE.
--- NOTE | 2022-06-29 07:26 | NUR ---
RECEIVED BEDSIDE REPORT FROM NIGHTSHIFT NURSE. PT IS AWAKE, RESTING IN BED. NO SIGNS OF DISTRESS. PT ON RM AIR, IV TO LEFT AC 22G, NS RUNNING AT 80MLS/HR. REORIENTED PT TO CALL LIGHT. NO FURTHER NEEDS ARE TO BE MET AT THIS TIME, WILL CONTINUE WITH CARE. BED IN LOWEST POSITION, 2 SIDE RAILS UP, CALL LIGHT WITHIN REACH.
[2022-06-29 07:28] LABS: BASOPHILS % (AUTO) 0.3 % (0.0-2.0); EOSINOPHILS % (AUTO) 0.2 % (0.0-4.0); HEMATOCRIT 38.1 % (36-52); LYMPHOCYTES # (AUTO) 0.8 K/uL (2.0-11.5); LYMPHOCYTES % (AUTO) 6.1 % (20.5-51.1); MEAN CORPUSCULAR HEMOGLOBIN 30 pg (27-31); MEAN CORPUSCULAR HGB CONC 34 g/dL (33-37); MEAN CORPUSCULAR VOLUME 87.5 fL (80-94); MONOCYTES # (AUTO) 0.6 K/uL (0.8-1.0); MONOCYTES % (AUTO) 4.3 % (1.7-9.3); NEUTROPHILS # (AUTO) 11.9 K/uL (1.8-7.7); NEUTROPHILS % (AUTO) 89.1 % (42.2-75.2); PLATELET COUNT (AUTO) 137 K/uL (140-450); RED BLOOD CELL COUNT(AUTO) 4.35 MIL/uL (4.20-6.10); WHITE BLOOD COUNT (AUTO) 13.4 K/uL (4.8-10.8)
[2022-06-29 07:35] LABS: CREATININE 1.1 mg/dL (0.6-1.3); POTASSIUM 3.8 mmol/L (3.5-5.1)
[2022-06-29 07:43] LABS: CARBON DIOXIDE 19.8 mmol/L (21-32)
[2022-06-29 08:26] LABS: MAGNESIUM 1.3 mg/dL (1.8-2.4)
[2022-06-29] MEDS ORDERED: DOCUSATE SODIUM 100 MG GELCAP PO SCH (09:00)
[2022-06-29] MEDS: NACL 0.9% 1,000 ML IV SCH (10:36)
[2022-06-29] MEDS ORDERED: METR-435 PO (13:22)
[2022-06-29] MEDS ORDERED: CIPR500T4 PO (13:22)
[2022-06-29 15:17] VITALS: BP 97/60
--- NOTE | 2022-06-29 17:00 | NUR ---
PT INFORMED OF DISCHARGE. PT VERBALIZE DISCHARGE INSTRUCTIONS. PAPERWORK SIGNED. IV REMOVED. PT PICKED UP BY BROTHER. LEFT [facility] UNIT AT 1645. NO SIGNS OF DISTRESS.
[2022-06-29] MEDS ORDERED: LEVOFLOXACIN 500 MG/D5W PREMIX 100 ML IV SCH (22:00)
--- NOTE | 2022-07-01 11:01 | NUR ---
CALLED DR VEDA MARTE'S OFFICE AT LOCATED AT [address] [place] [address]. SPOKE WITH LUIS WHO WAS ABLE INFORM ME PT ALREADY CALLED AND HAS A FOLLOW UP APPOINTMENT FOE 07/05/2022 AT 0845.
== END 2022-06-29 17:14 | disposition home or self-care (01) | DRG 720 ==
LOC: MED 17:35 → MMU 21:51 → MTU 23:22
PROVIDERS: ADMIT Hospitalist; ATTEND Emergency Medicine
DX: A41.9 Sepsis, unspecified organism (principal); K70.30 Alcoholic cirrhosis of liver without ascites; A09 Infectious gastroenteritis and colitis, unspecified; E11.9 Type 2 diabetes mellitus without complications; F41.9 Anxiety disorder, unspecified; K21.9 Gastro-esophageal reflux disease without esophagitis; I10 Essential (primary) hypertension; F10.90 Alcohol use, unspecified, uncomplicated; Y90.9 Presence of alcohol in blood, level not specified; Z20.822 Contact with and (suspected) exposure to COVID-19
CPT/HCPCS: 36415; 80048; 80053; 81001; 82948; 83605; 83690; 83735; 84100; 85025; 87040; 87081; 96365; 96375; 99285; C9113; J1644; J1956; J2270; J3490

== ENCOUNTER 2023-08-08 07:46 | Day surgery (SDC) | payer OTHER ==
[~2023-08-08] VITALS: Ht 170.2 cm; Wt 78.9 kg
[~2023-08-08 07:46] MED LIST changes: -CEPH500T PO; +CIPR500T4 PO; +METR-435 PO; +MIRT-121 PO; -MIRT-92 PO; +SERT100T PO
[2023-08-08] MEDS ORDERED: MIDAZOLAM 2 MG/2 ML VIAL ONE (08:42)
[2023-08-08] MEDS ORDERED: fentaNYL citrate 0.05 MG/ML VIAL ONE (08:43)
[2023-08-08] MEDS ORDERED: MIDAZOLAM 2 MG/2 ML VIAL IVP ONE (12:30)
== END 2023-08-08 10:46 | disposition home or self-care (01) ==
LOC: MDS 07:46 → MMU 07:47 → MDS 10:46
PROVIDERS: ATTEND Internal Medicine Gastroenterology
DX: K70.30 Alcoholic cirrhosis of liver without ascites (principal); K92.1 Melena; I10 Essential (primary) hypertension; E11.9 Type 2 diabetes mellitus without complications; E78.5 Hyperlipidemia, unspecified; Z79.899 Other long term (current) drug therapy; Z98.890 Other specified postprocedural states
CPT/HCPCS: 43235; 82948; J2250; J3010

== ENCOUNTER 2023-09-16 13:29 | Emergency (ER) | payer OTHER ==
[~2023-09-16] VITALS: Ht 170.2 cm; Wt 77.1 kg
[~2023-09-16 13:29] MED LIST changes: -CIPR500T4 PO; -LACT10SO11 PO; -METR-435 PO; -SERT100T PO
[2023-09-16 13:45] VITALS: BP 157/95; PULSE 74; RESP 18; TEMP 98.3; O2SAT 98
[2023-09-16] MEDS: metFORMIN 500 MG TAB PO ONE (14:08)
== END 2023-09-16 14:14 | disposition home or self-care (01) ==
LOC: MED 13:29
DX: E11.65 Type 2 diabetes mellitus with hyperglycemia (principal); K21.9 Gastro-esophageal reflux disease without esophagitis; I10 Essential (primary) hypertension; Z79.84 Long term (current) use of oral hypoglycemic drugs; Z79.899 Other long term (current) drug therapy
CPT/HCPCS: 82948; 99283